=== PATIENT | female | born 1970 | race American Indian/Alaskan Native ===

== ENCOUNTER 2016-12-05 23:46 | Emergency (ER) | payer BC ==
[2016-12-06 02:04] LABS: Basophils % (Auto) 1.1 % (0.0-1.8); Eosinophils % (Auto) 1.3 % (0.0-4.3); Hematocrit 34.2 % (30.3-42.9); Mean Corpuscular HGB Conc 32 % (30-34); Mean Corpuscular Hemoglobin 26 pg (28-32); Mean Corpuscular Volume 82 fl (79-97); Platelet Count 298 K/mm3 (140-440); Red Blood Count 4.18 M/mm3 (3.65-5.03); Red Cell Distribution Width 15.2 % (13.2-15.2); White Blood Count 5.8 K/mm3 (4.5-11.0)
[2016-12-06 02:21] LABS: Anion Gap 13 mmol/L; BUN/Creatinine Ratio 21.66; Blood Urea Nitrogen 13 mg/dL (7-17); Calcium 8.8 mg/dL (8.4-10.2); Carbon Dioxide 28 mmol/L (22-30); Chloride 104.6 mmol/L (98-107); Glucose 101 mg/dL (65-100); Potassium 3.6 mmol/L (3.6-5.0); Sodium 142 mmol/L (137-145)
[2016-12-06] MEDS ORDERED: TORADOL IM ONE (03:42)
[2016-12-06] MEDS ORDERED: FLEXERIL PO ONE (03:42)
--- NOTE | 2016-12-06 03:50 | Emergency Department Report ---
HPI - General Chief Complaint: Extremity Injury, Lower Time Seen by Provider: 12/06/16 02:23 - [facility] HPI: Patient is a 46-year-old female presents to ED complaining of bilateral leg cramping that began today. Patient states today she started experiencing to maintain cramping in her lower legs. Patient denies any trauma, leg injury. She states she normally takes tramadol for pain. But she is out of her medication. She denies fevers/chills/nausea/vomiting/chest pain/shortness of breath abdominal pain/lower back pain ED Past Medical Hx - Past Medical History Previous Medical History?: No - Surgical History Past Surgical History?: No - Social History Smoking Status: Never Smoker Substance Use Type: None - Medications Home Medications: Home Medications Medication Instructions Recorded Confirmed Last Taken Type Furosemide [Lasix] 20 mg PO QDAY #30 tablet 12/27/14 Unknown Rx Cyclobenzaprine [Flexeril 10 MG 10 mg PO QHS #20 tablet 12/06/16 Unknown Rx TAB] Naproxen [Naprosyn] 500 mg PO BID #40 tablet 12/06/16 Unknown Rx ED Review of Systems ROS: Stated complaint: LEG CRAMPS Other details as noted in HPI Constitutional: denies: chills, fever Eyes: denies: eye pain, eye discharge, vision change ENT: denies: ear pain, throat pain Respiratory: denies: cough, shortness of breath, wheezing Cardiovascular: denies: chest pain, palpitations Endocrine: no symptoms reported Gastrointestinal: denies: abdominal pain, nausea, diarrhea Genitourinary: denies: urgency, dysuria, discharge Musculoskeletal: denies: back pain, joint swelling, arthralgia Skin: denies: rash, lesions Neurological: denies: headache, weakness, paresthesias Psychiatric: denies: anxiety, depression Hematological/Lymphatic: denies: easy bleeding, easy bruising Physical Exam - Physical Exam Physical Exam: GENERAL: Alert and oriented x3, no apparent distress, Normal Gait, atraumatic. HEAD: Head is normocephalic and a-traumatic. EYES: Extra ocular muscles are intact. Pupils are equal, round, and reactive to light and accommodation. LUNGS: Symetrical with respiration, No wheezing, no rales or crackles, CTAB. HEART: S1, S2 present, regular rate and rhythm without murmur, no rubs, no gallops. Non tender to palpation ABDOMEN: No organomegaly was noted,Positive bowel sounds, soft, and non- distended. . Nontender to palpation on all Quadrants, NO CVA tenderness. EXTREMITIES/MUSCULOSKELETAL: No cyanosis, clubbing, rash, lesions or edema. Full ROM bilaterally. UE/LE Pulses 2+ bilaterally. LE and UE 5+ strength bilaterally, straight leg raise negative bilaterally. Homans sign negative bilaterally. calf nontender to palpation. Swelling, no ecchymosis, no erythema on bilateral legs. No active injuries NEUROLOGIC: The patient is cooperative with no focal neurologic deficits. Cranial nerves II through XII are intact PSYCHIATRIC: Mood is congruent with affect, denies suicidal or homicidal ideations. SKIN: Warm and dry, No lesions, No ulceration or induration present. ED Medical Decision Making - Lab Data Result diagrams: 12/06/16 01:49 12/06/16 01:49 - Medical Decision Making 36-year-old female presents bilateral myalgia ED course: Patient received Flexeril and return to the ED sign CBC, BMP ordered. Labs within normal limits. Discussed with follow-up with her primary care physician. Patient after receiving ED stay she feels better she is much better. Based on negative exam for DVT, no further workup is necessary. Vital signs are stable patient is in no acute distress. Critical care attestation.: If time is entered above; I have spent that time in minutes in the direct care of this critically ill patient, excluding procedure time. ED Disposition Clinical Impression: Myalgia, Leg pain, bilateral Disposition: DC- TO HOME OR SELFCARE Is pt being admited?: No Does the pt Need Aspirin: No Condition: Stable Instructions: Trigger Point Pain (ED), Musculoskeletal Pain (ED) Additional Instructions: If pain worsens return to ED. If new symptoms arise return to ED. Take your medication as prescribed Please follow-up with your primary care physician as discussed. Prescriptions: Cyclobenzaprine [Flexeril 10 MG TAB] 10 mg PO QHS #20 tablet Naproxen [Naprosyn] 500 mg PO BID #40 tablet Referrals: PRIMARY CARE, [Primary Care Provider] - 3-5 Days [facility] [place] [Outside] - 3-5 Days [facility] [Outside] - 3-5 Days [facility] [Outside] - 3-5 Days Forms: Work/School Release Form(ED)
[2016-12-06 05:07] VITALS: BP 113/70
== END 2016-12-06 05:09 | disposition home or self-care (01) ==
LOC: ED 23:46
DX: M79.1 Myalgia (principal); M79.604 Pain in right leg; M79.605 Pain in left leg
CPT/HCPCS: 36415; 80048; 85025; 96372; 99284; J1885

== ENCOUNTER 2017-06-13 11:45 | Emergency (ER) | payer BC ==
[2017-06-13 12:33] VITALS: BP 125/92
[2017-06-13] MEDS ORDERED: NORCO 5/325 PO ONE (13:29)
[2017-06-13] MEDS ORDERED: FLEXERIL PO ONE (13:29)
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
[2017-06-13] MEDS ORDERED: TORADOL IM ONE (13:43)
== END 2017-06-13 15:47 | disposition home or self-care (01) ==
LOC: ED 11:45
DX: R51 Headache (principal); M54.2 Cervicalgia; M54.5 Low back pain; M54.9 Dorsalgia, unspecified; I10 Essential (primary) hypertension; V49.49XA Driver injured in collision with other motor vehicles in traffic accident, initial encounter; Y93.89 Activity, other specified; Y92.89 Other specified places as the place of occurrence of the external cause; Y99.8 Other external cause status
CPT/HCPCS: 96372; 99282; J1885

== ENCOUNTER 2018-06-29 09:23 | Day surgery (SDC) | payer BC ==
[~2018-06-29 09:23] MED LIST: ANCEF/STERILE WATER 2 GM/20 ML 2 GM/20 ML SYRINGE IV NR; NACL 0.9% 1000 ML 1,000 ML IV SCH
[2018-06-29 10:29] LABS: Basophils % (Auto) 0.3 % (0.0-1.8); Eosinophils # (Auto) 0.1 K/mm3 (0.0-0.4); Eosinophils % (Auto) 2.2 % (0.0-4.3); Hematocrit 30.9 % (30.3-42.9); Hemoglobin 10.2 gm/dl (10.1-14.3); Lymphocytes # (Auto) 1.9 K/mm3 (1.2-5.4); Lymphocytes % (Auto) 49.4 % (13.4-35.0); Mean Corpuscular HGB Conc 33 % (30-34); Mean Corpuscular Volume 79 fl (79-97); Monocytes # (Auto) 0.4 K/mm3 (0.0-0.8); Platelet Count 290 K/mm3 (140-440); Red Blood Count 3.89 M/mm3 (3.65-5.03); Red Cell Distribution Width 17.3 % (13.2-15.2)
[2018-06-29 10:38] LABS: INR 0.92 (0.87-1.13)
[2018-06-29 10:39] LABS: Partial Thromboplastin Time 32.6 Sec. (24.2-36.6)
[2018-06-29 10:47] LABS: BUN/Creatinine Ratio 25; Blood Urea Nitrogen 10 mg/dL (7-17); Calcium 8.5 mg/dL (8.4-10.2); Hemolysis Index 85
[2018-06-29] MEDS ORDERED: SOLU-Medrol IV NR (11:00)
[2018-06-29] MEDS ORDERED: BENADRYL IV ONE (11:38)
[2018-06-29] MEDS ORDERED: HEPARIN/NS 5000 UNIT/500ML(CATH LAB) 1,000 ML IR ONE (11:59)
[2018-06-29] MEDS ORDERED: TORADOL ONE (12:00)
[2018-06-29] MEDS: SUBLIMAZE ONE ×2 (12:33→12:37)
[2018-06-29] MEDS: VERSED ONE ×2 (12:33→12:35)
[2018-06-29] MEDS: XYLOCAINE 2% INFILTRATI ONE ×2 (12:35→12:37)
[2018-06-29] MEDS ORDERED: SUBLIMAZE ONE (12:40)
--- NOTE | 2018-06-29 13:04 | Short Stay Summary ---
Short Stay Documentation Date of service: 06/29/18 - History Principal diagnosis: Venous compression H&P: obtained from office - Allergies and Medications Current Medications: Allergies escitalopram [From Lexapro] Allergy (Verified 06/29/18 11:28) Unknown Home Medications Medication Instructions Recorded Confirmed Last Taken Type Naproxen [Naprosyn] 500 mg PO BID #40 tablet 12/06/16 06/29/18 06/28/18 Rx Cyclobenzaprine [Flexeril] 10 mg PO BID PRN 05/18/18 06/29/18 3 Days Ago History ~05/15/18 Furosemide [Lasix] 40 mg PO QDAY 05/18/18 06/29/18 06/27/18 History Losartan Potassium 50 mg PO DAILY 05/18/18 06/29/18 06/29/18 05:00 History Potassium Chloride [K-Dur] 10 meq PO QDAY 05/18/18 06/29/18 06/27/18 History Active Medications Cefazolin Sodium (Ancef/Sterile Water 2 Gm/20 Ml) 2 gm in 20 mls @ 80 mls/hr IV PREOP NR; Protocol Stop: 06/29/18 23:59 Sodium Chloride (Nacl 0.9% 1000 Ml) 1,000 mls @ 42 mls/hr IV DIRECT MATEO Last Admin: 06/29/18 10:56 Dose: 42 mls/hr Documented by: Methylprednisolone Sodium Succinate (Solu-Medrol) 125 mg IV PREOP NR Stop: 06/29/18 23:00 Last Admin: 06/29/18 11:02 Dose: 125 mg Documented by: - Brief post op/procedure progress note Date of procedure: 06/29/18 Pre-op diagnosis: venous compression Post-op diagnosis: same Procedure: BLE venogram, IVUS, venous stents and venoplasty Anesthesia: local Surgeon: KRYSTAL GOMES Estimated blood loss: minimal Condition: stable - Disposition Condition at discharge: Good Disposition: DC-01 TO HOME OR SELFCARE Short Stay Discharge Plan Activity: advance as tolerated Weight Bearing Status: Weight Bear as Tolerated Diet: regular Wound: keep clean and dry, per your surgeon's advice Follow up with: BETTY TAVAREZ PA [Primary Care Provider] - 7 Days
--- NOTE | 2018-06-29 13:11 | Operative Report ---
Operative Report Operative Report: Exam: Bilateral lower extremity venogram, venoplasty with stent placement Clinical indication: Patient with a history of venous compression, additional evaluation prior to examination performed with a CT of the abdomen and pelvis to rule out extrinsic mass Date: 06/29/2018 Procedure: Following an explanation of the risks, benefits and alternatives; written informed consent was obtained. The patient was brought to the angiogram suite placed in supine position on the examination table. Initial ultrasound evaluation of her legs demonstrated proximal femoral veins patency bilaterally. The patient's legs and groin were prepped and draped in the usual sterile fashion. 1% lidocaine was used for anesthesia. Under ultrasound guidance, the right proximal femoral vein was cannulated with a 7 cm 18-gauge needle. A 0.035 guidewire was advanced centrally. The needle was removed and a 5 Australian sheath placed. Access to the proximal left femoral vein was obtained in a similar fashion and an additional 5 Australian sheath placed. Contrast was injected through both sheaths simultaneously. This demonstrates significant extrinsic compression of the left common iliac vein of approximately 70% stenosis. There is long segment stenosis separate from this involving the left external iliac vein of approximate 60%. On the right, there is significant extrinsic compression of the mid right common iliac vein of 60%. This stenosis extends into a right external iliac vein. Prestenotic dilatation of the distal external iliac veins bilaterally is present. The decision was made to treat all of the above lesions. 2 16 mm x 90 mm wall stents were advanced through the sheaths and deployed from the distal external iliac veins bilaterally until the common iliac veins bilaterally. 2 18 mm x 90 mm wall stents were then advanced and deployed through the previously placed stents extending from the common iliac veins into the distal IVC. The stents were then seated using 14 mm balloons and kissing fashion insufflated at multiple locations to see the stents. Post stent deployment imaging demonstrated brisk flow throughout the pelvis, previously noted pelvic collaterals are no longer visualized. The guidewires and sheaths were removed and hemostasis achieved using manual compression. Sterile compression dressings were applied. The patient tolerated the procedure well. There were no immediate post procedure compensations. Conscious sedation was performed under the guidance of radiologic nursing. Continuous cardiopulmonary monitoring was utilized. 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 2) Treatment of these lesions with stents and venoplasty as described with residual less than 10% stenosis.
[2018-06-29] MEDS ORDERED: NORCO 5/325 PO PRN (13:28)
[2018-06-29 15:32] VITALS: BP 123/75
== END 2018-06-29 15:40 | disposition home or self-care (01) ==
LOC: CATHLABREC 09:23
PROVIDERS: ATTEND Radiology Diagnostic Radiology
DX: I87.1 Compression of vein (principal); I87.323 Chronic venous hypertension (idiopathic) with inflammation of bilateral lower extremity; I87.2 Venous insufficiency (chronic) (peripheral); I10 Essential (primary) hypertension; M19.90 Unspecified osteoarthritis, unspecified site; Z79.899 Other long term (current) drug therapy; Z88.8 Allergy status to other drugs, medicaments and biological substances; Z98.51 Tubal ligation status; Z98.890 Other specified postprocedural states
CPT/HCPCS: 36415; 37238; 37239; 75822; 80048; 85025; 85610; 85730; 96374; 96375; 99156; 99157; C1725; C1769; C1876; C1894; J1200; J1644; J1885; J2250; J2930; J3010; J7030; 76937; Q9967